=== PATIENT | male | born 1995 | race Asian ===

== ENCOUNTER 2021-06-19 12:35 | Emergency (ER) | payer OTHER ==
[~2021-06-19] VITALS: Ht 177.8 cm; Wt 68.0 kg
--- NOTE | 2021-06-19 12:35 | NUR ---
BIB [facility], SPONTANEOUS LEFT SHOULDER DISLOCATION WHILE WALKING,2ND TIME THIS HAPPENED. VITAL SIGNS ARE STABLE. BREATHING IS REGULAR AND UNLABORED
[2021-06-19] MEDS ORDERED: IV NS 0.9% 1,000 ML IV ONE (15:00)
[2021-06-19] MEDS ORDERED: HYDROMORPHONE 1 MG/1 ML DISP.SYRIN IV ONE (15:00)
[2021-06-19] MEDS ORDERED: HYDROMORPHONE 1 MG/1 ML DISP.SYRIN ONE (15:12)
[2021-06-19] MEDS ORDERED: PROPOFOL 40 ML IV ONE (15:47)
[2021-06-19] MEDS ORDERED: PROPOFOL 200 MG/20 ML VIAL IV ONE (16:00)
--- NOTE | 2021-06-19 16:22 | NUR ---
CLOSED REDUCTION OF LEFT SHOULDER DISLOCATION WITH MODERATED SEDATION WAS PERFORMED BY DR FOOTE. A TOTAL OF 105 PROPOFOL WAS GIVE; 35 IN 2 MINUTE INTERVALS. PT BASELINE VITALS WERE HR 91/SPO2 100%/ RR19/ BP 122/82. VITALS DURING PROCEDURE WERE HR74/ SPO2 100%/ RR 27/ BP 168/69. VITALS AFTER THE PROCEDURE WERE HR 82/ SPO2 100%/ RR 27/ BP 168/69. RT WAS AT BEDSIDE DURIG PROCEDURE. SHOULDER PLACEMENT WAS CONFIRMED BY XRAY.
--- NOTE | 2021-06-19 16:36 | NUR ---
X RAY AT BEDSIDE
[2021-06-19] MEDS ORDERED: IBUP-1955 PO (17:06)
--- NOTE | 2021-06-19 17:44 | NUR ---
Patient discharged to home in stable condition. Written and verbal after care instructions given. Patient verbalizes understanding of instruction. IV removed. Catheter intact and site benign. Pressure and 4x4 applied to site. No bleeding noted.
[2021-06-19 17:45] VITALS: BP 119/83
== END 2021-06-19 17:45 | disposition home or self-care (01) ==
LOC: ER 12:39
DX: M24.412 Recurrent dislocation, left shoulder (principal); W51.XXXA Accidental striking against or bumped into by another person, initial encounter; Y93.89 Activity, other specified; Y92.89 Other specified places as the place of occurrence of the external cause; Y99.8 Other external cause status
CPT/HCPCS: 23650; 73030 ×2; 96361; 96374; 99152; 99285; J1170; J2704; J7030 ×2; G0500